=== PATIENT | male | born 1995 | race Caucasian/White ===

== ENCOUNTER 2018-01-26 02:55 | Emergency (ER) | payer SELFPAY ==
[~2018-01-26] VITALS: Ht 180.3 cm; Wt 77.1 kg
[2018-01-26 03:03] VITALS: BP 112/56
[2018-01-26] MEDS ORDERED: TDAP [DIPH/PERTUSSIS/TET] 0.5 ML VIAL IM ONE ×2 (03:30→04:52)
[2018-01-26] MEDS ORDERED: LIDOCAINE HCL/PF 1% 30 ML SDV ONE (04:13)
== END 2018-01-26 04:58 | disposition home or self-care (01) ==
LOC: ER 02:58
DX: S01.511A Laceration without foreign body of lip, initial encounter (principal); Y04.8XXA Assault by other bodily force, initial encounter; Y93.89 Activity, other specified; Y92.511 Restaurant or cafe as the place of occurrence of the external cause; Y99.8 Other external cause status
CPT/HCPCS: 90715; A4606; A6402; J3490; Z7610